=== PATIENT | female | born 1945 | race Caucasian/White ===

== ENCOUNTER → 2019-07-25 08:57 | Outpatient (CLI) | payer MEDICARE, OTHER, SELFPAY ==
--- NOTE | 2019-07-25 09:13 | DI.CT.S_ITS ---
PROCEDURE: CT ABDOMEN PELVIS WO/W CON INDICATIONS: Unspecified abd pain TECHNIQUE: Optional 5 mm thick noncontrast images acquired from the diaphragm to the symphysis pubis. After the administration of intravenous contrast, 5 mm thick images acquired from the diaphragm to the symphysis pubis after a 10-minute delay. 2 mm thick coronal and sagittal reformats were then performed of the kidneys and ureters. For radiation dose reduction, the following was used: automated exposure control, adjustment of mA and/or kV according to patient size. COMPARISON: [facility], CT, THORAX WITHOUT CONTRAST, 03/19/2014, 10:15. FINDINGS: Image quality: Excellent. Lung bases: Lung bases are clear. Right lower lobe calcified granuloma. Heart size is normal. Urinary system: Both kidneys are normal in size, without hydronephrosis or nephrolithiasis on pre-contrast images. The small left peripelvic cyst. Small bilateral cortical hypodensities which are too small to further characterize but statistically most likely benign cysts. No perinephric fat stranding. There is normal bilateral renal enhancement. Renal calyces appear normal in morphology when filled with contrast. Opacified portions of both ureters demonstrate normal caliber. No filling defect within the opacified portions of the ureter. The distal ureters are not well opacified. Bladder wall thickness is normal. No calcified bladder stones. Other solid organs: Liver is normal in size and enhancement. No focal lesion identified. Gallbladder is unremarkable. Biliary system is non dilated. Pancreas enhances normally. Spleen is normal in size and enhancement. Multiple calcified granuloma. No adrenal nodules. Peritoneum and bowel: Gastric diverticulum, unchanged. Bowel loops demonstrate normal wall thickness and caliber. Diverticulosis. The appendix is normal. No free fluid or air. Nodes and vessels: No retroperitoneal or mesenteric adenopathy by size criteria. Aorta and inferior vena cava are normal in size. Abdominal wall: No ventral hernias. Pelvis: Uterus is unremarkable. Bilateral ovarian cysts. These cysts are bilobed with a thin septation. The cyst on the right measures 4.2 x 2.9 cm, (3/144); and on the left measures 3.3 x 3.1 cm, (3/142). Coarse calcification adjacent to the right adnexa. No pathologic free pelvic fluid. No inguinal hernias or adenopathy. Bones: No suspicious bony lesions. Scoliosis. Marked degenerative disc disease most pronounced at L2-L3. No vertebral body compression fractures. Subchondral cyst in the left femoral head. IMPRESSION: 1. No acute abnormality identified. No hydronephrosis. No kidney stones. No free fluid. 2. No solid renal mass. No abnormality within the opacified portions of the ureters. Distal ureters are not well opacified. 3. Incidental bilateral ovarian cysts measuring 4.2 cm on the right and 3.3 cm on the left. -Recommend pelvic ultrasound for further characterization. Dictated by: Juliano Grove M.D. on 07/25/2019 at 10:15 Approved by: Juliano Grove M.D. on 07/25/2019 at 10:31
[2019-07-25 09:44] LABS: Alanine Aminotransferase 11 IU/L (<35); Albumin 4.3 g/dL (3.5-5.0); Albumin Globulin Ratio 1.2 (1.0-2.8); Alkaline Phosphatase 73 U/L (38-126); Aspartate Aminotransferase 23 IU/L (14-36); BUN Creatinine Ratio 13.3 (6-22); Bilirubin Total 1.5 mg/dL (0.2-1.3); Blood Urea Nitrogen 11 mg/dL (7-17); Calcium 9.8 mg/dL (8.4-10.2); Carbon Dioxide 27 mmol/L (22-32); Chloride 105 mmol/L (98-107); Estimated Glomerular Filt Rate > 60.0 mL/min (>60); Globulin 3.5 g/dL (1.7-4.1); Glucose 100 mg/dL (80-110); HEMOLYSIS < 15 (0-50); Lipase 125 U/L (23-300); Potassium 3.9 mmol/L (3.4-5.1); Sodium 139 mmol/L (137-145); Total Protein 7.8 g/dL (6.3-8.2)
[2019-07-25 09:46] LABS: Add Manual Diff / Slide Review NO; Basophils Absolute Auto 100 /uL (0-100); Basophils Percent Auto 1.1 % (0-2); Eosinophils Absolute Auto 200 /uL (0-450); Eosinophils Percent Auto 2.9 % (2-4); Hematocrit 42.9 % (36-46); Hemoglobin 14.6 g/dL (12.0-16.0); Lymphocytes Absolute Auto 1600 /uL (1100-4500); Lymphocytes Percent Auto 25.4 % (25-40); Mean Corpuscular HGB Conc 34.1 % (30-36); Mean Corpuscular Hemoglobin 29.9 PG (26-34); Mean Corpuscular Volume 87.7 fL (80-100); Monocytes Absolute Auto 500 /uL (0-900); Monocytes Percent Auto 8.5 % (3-14); Neutrophils Absolute Auto 4000 /uL (1500-7000); Neutrophils Percent Auto 62.1 % (50-75); Platelet Count 212 X10^3/uL (150-400); Red Blood Cell Count 4.89 X10^6/uL (4.0-5.2); Red Cell Distribution Width 13.5 % (11.6-14.8); White Blood Cell Count 6.5 X10^3/uL (4.5-11.0)
[2019-07-25 10:38] LABS: Erythrocyte Sedimentation Rate 6 MM/HR (0-20)
== END ==
PROVIDERS: Family Provider Family Medicine; PCP Family Medicine; Referring Provider Family Medicine; Visit Provider Family Medicine
DX: R10.9 Unspecified abdominal pain (principal); R11.2 Nausea with vomiting, unspecified; K57.90 Diverticulosis of intestine, part unspecified, without perforation or abscess without bleeding; N83.202 Unspecified ovarian cyst, left side; N83.201 Unspecified ovarian cyst, right side
CPT/HCPCS: 36415; 74178; 80053; 83690; 85025; 85651; Q9967

== ENCOUNTER → 2019-07-31 08:52 | Outpatient (CLI) | payer MEDICARE, OTHER, SELFPAY ==
--- NOTE | 2019-07-31 | DI.US.S_ITS ---
PROCEDURE: US PELVIC COMPLETE INDICATIONS: BILATERAL OVARIAN CYSTS SEEN ON CT SCAN TECHNIQUE: Real-time scanning was performed of the pelvic organs, with image documentation. Additional endovaginal scanning was necessary due to incomplete visualization of the adnexal and endometrial structures by transabdominal scanning. COMPARISON: [facility], CT, CT ABDOMEN PELVIS WO/W CON, 07/25/2019, 9:44. FINDINGS: Transabdominal scanning: Limited scanning through the kidneys shows no hydronephrosis. No pathologic free abdominal or pelvic fluid. Endovaginal scanning: Uterus: Uterus is normal in size at 5.7 x 1.9 x 3.3 cm. The endometrium measures 2 mm in combined thickness. Ovaries: Right ovary: 1.9 x 1.6 x 1.9 cm. There are 3 measured right ovarian cysts. Cyst 1 measures 3 x 3 x 3 cm. Cyst 2 measures 1.7 x 1.5 x 1.5 cm. Cyst 3 measures 0.9 x 0.9 x 0.7 cm. Left ovary: 3.0 x 2.5 x 2.3 cm. There are 3 separate measured left ovarian cysts. Cyst 1 measures 1.6 x 1.3 x 1.3 cm. Cyst 2 measures one point 1.9 x 2.3 x 1.7 cm. Cyst 3 measures 1.5 x 1.1 x 1.4 cm. IMPRESSION: 1. There are multiple bilateral ovarian cysts in a postmenopausal female. The largest individual cyst measures 3.0 cm. SRU Consensus Statement recommends yearly ultrasound followup for cysts between 1 cm and 7 cm in postmenopausal females. Therefore, followup ultrasound in 12 months is suggested. Dictated by: Edgar Leal M.D. on 07/31/2019 at 12:35 Approved by: Edgar Leal M.D. on 07/31/2019 at 12:41
== END ==
PROVIDERS: Family Provider Family Medicine; PCP Family Medicine; Referring Provider Family Medicine; Visit Provider Family Medicine
DX: N83.201 Unspecified ovarian cyst, right side (principal); N83.202 Unspecified ovarian cyst, left side
CPT/HCPCS: 76830; 76856

== ENCOUNTER → 2019-09-03 09:03 | Outpatient (CLI) | payer MEDICARE, OTHER, SELFPAY ==
[2019-09-03 11:32] LABS: Cancer Antigen 125 6.1 U/mL (0-35); Carcinoembryonic Antigen 1.7 ng/mL (0.1-3.0)
[2019-09-05 04:07] LABS: Cancer (Carbohydrate) Ag 19-9 9 U/mL (0-35)
== END ==
PROVIDERS: Family Provider Family Medicine; PCP Family Medicine; Referring Provider Obstetrics & Gynecology; Visit Provider Obstetrics & Gynecology
DX: R19.09 Other intra-abdominal and pelvic swelling, mass and lump (principal); N83.201 Unspecified ovarian cyst, right side; N83.202 Unspecified ovarian cyst, left side; R19.00 Intra-abdominal and pelvic swelling, mass and lump, unspecified site
CPT/HCPCS: 36415; 82378; 86301; 86304; 86305

== ENCOUNTER → 2019-10-21 10:03 | Outpatient (CLI) | payer MEDICARE, OTHER, SELFPAY ==
[2019-10-21 11:39] LABS: Cholesterol 281 mg/dL (140-199); HDL Cholesterol 56 mg/dL (40-60); LDL Cholesterol Calculated 170 mg/dL (<100); Triglycerides 276 mg/dL (35-150)
[2019-10-21 11:55] LABS: Vitamin D 25 Hydroxy (D3) 17.3 ng/mL (30.0-100.0)
[2019-10-21 11:58] LABS: Free T3, Triiodothyronine Free 3.16 pg/mL (2.77-5.27); Free T4, Direct Thyroxine 1.27 ng/dL (0.78-2.19)
[2019-10-21 12:12] LABS: Thyroid Stimulating Hormone 2.21 uIU/mL (0.47-4.68)
== END ==
PROVIDERS: Family Provider Family Medicine; PCP Family Medicine; Referring Provider Family Medicine; Visit Provider Family Medicine
DX: B19.20 Unspecified viral hepatitis C without hepatic coma (principal); E03.9 Hypothyroidism, unspecified; E78.5 Hyperlipidemia, unspecified; I10 Essential (primary) hypertension
CPT/HCPCS: 36415; 80061; 82306; 84439; 84443; 84481

== ENCOUNTER → 2019-10-23 09:38 | Outpatient (CLI) | payer MEDICARE, OTHER, SELFPAY ==
[2019-10-24 15:40] LABS: Fecal Immunochemical Test Negative (Negative)
== END ==
PROVIDERS: Family Provider Family Medicine; PCP Family Medicine; Referring Provider Family Medicine; Visit Provider Family Medicine
DX: Z12.11 Encounter for screening for malignant neoplasm of colon (principal)
CPT/HCPCS: 82274

== ENCOUNTER → 2020-10-04 09:13 | Outpatient (CLI) | payer MEDICARE, OTHER, SELFPAY ==
[2020-10-04 10:20] LABS: Add Manual Diff / Slide Review NO; Basophils Absolute Auto 100 /uL (0-100); Basophils Percent Auto 0.8 % (0-2); Eosinophils Absolute Auto 100 /uL (0-450); Eosinophils Percent Auto 1.9 % (2-4); Hematocrit 42.5 % (36-46); Hemoglobin 14.5 g/dL (12.0-16.0); Lymphocytes Absolute Auto 1400 /uL (1100-4500); Lymphocytes Percent Auto 22.1 % (25-40); Mean Corpuscular HGB Conc 34.1 % (30-36); Mean Corpuscular Hemoglobin 29.4 PG (26-34); Mean Corpuscular Volume 86.2 fL (80-100); Monocytes Absolute Auto 400 /uL (0-900); Monocytes Percent Auto 6.5 % (3-14); Neutrophils Absolute Auto 4400 /uL (1500-7000); Neutrophils Percent Auto 68.7 % (50-75); Platelet Count 207 X10^3/uL (150-400); Red Blood Cell Count 4.94 X10^6/uL (4.0-5.2); Red Cell Distribution Width 14.1 % (11.6-14.8); White Blood Cell Count 6.4 X10^3/uL (4.5-11.0)
[2020-10-04 10:29] LABS: Alanine Aminotransferase 22 IU/L (<35); Albumin 4.2 g/dL (3.5-5.0); Albumin Globulin Ratio 1.2 (1.0-2.8); Alkaline Phosphatase 87 U/L (38-126); Aspartate Aminotransferase 32 IU/L (14-36); BUN Creatinine Ratio 17.1 (6-22); Bilirubin Total 1.1 mg/dL (0.2-1.3); Blood Urea Nitrogen 12 mg/dL (7-17); Calcium 9.8 mg/dL (8.4-10.2); Carbon Dioxide 26 mmol/L (22-32); Chloride 105 mmol/L (98-107); Cholesterol 310 mg/dL (140-199); Estimated Glomerular Filt Rate > 60.0 mL/min (>60); Globulin 3.5 g/dL (1.7-4.1); Glucose 97 mg/dL (80-110); HDL Cholesterol 68 mg/dL (40-60); HEMOLYSIS < 15 (0-50); LDL Cholesterol Calculated 212 mg/dL (<100); Potassium 3.6 mmol/L (3.4-5.1); Sodium 139 mmol/L (137-145); Total Protein 7.7 g/dL (6.3-8.2); Triglycerides 148 mg/dL (35-150)
[2020-10-04 10:39] LABS: HEMOLYSIS < 15 (0-50); Iron 94 ug/dL (37-170)
[2020-10-04 10:51] LABS: Percent Iron Saturation 28 % (15-50); Total Iron Binding Capacity 335 ug/dL (265-497); Transferrin 266 mg/dL (206-381)
[2020-10-04 10:56] LABS: Free T3, Triiodothyronine Free 4.02 pg/mL (2.77-5.27); Free T4, Direct Thyroxine 0.98 ng/dL (0.78-2.19)
[2020-10-04 11:01] LABS: Vitamin D 25 Hydroxy (D3) 17.2 ng/mL (30.0-100.0)
[2020-10-04 11:10] LABS: Thyroid Stimulating Hormone 7.36 uIU/mL (0.47-4.68)
[2020-10-04 11:16] LABS: Vitamin B12 307 pg/mL (239-931)
[2020-10-04 15:44] LABS: Hep C Virus Ab w/Reflex Quant REACTIVE s/c (NEGATIVE)
== END ==
PROVIDERS: Family Provider Family Medicine; PCP Family Medicine; Referring Provider Family Medicine; Visit Provider Family Medicine
DX: E03.9 Hypothyroidism, unspecified (principal); Z86.19 Personal history of other infectious and parasitic diseases; E78.5 Hyperlipidemia, unspecified; I15.2 Hypertension secondary to endocrine disorders; R53.83 Other fatigue
CPT/HCPCS: 36415; 80053; 80061; 82306; 82607; 83540; 83550; 84439; 84443; 84481; 85025; 86803; 87522

== ENCOUNTER → 2021-05-30 08:30 | Outpatient (CLI) | payer MEDICARE, OTHER, SELFPAY ==
[2021-05-30 19:31] LABS: Add Manual Diff / Slide Review NO; Basophils Absolute Auto 100 /uL (0-100); Basophils Percent Auto 1.4 % (0-2); Eosinophils Absolute Auto 200 /uL (0-450); Eosinophils Percent Auto 2.8 % (2-4); Hematocrit 39.6 % (36-46); Hemoglobin 13.3 g/dL (12.0-16.0); Lymphocytes Absolute Auto 1700 /uL (1100-4500); Lymphocytes Percent Auto 27.6 % (25-40); Mean Corpuscular HGB Conc 33.5 % (30-36); Mean Corpuscular Hemoglobin 28.6 PG (26-34); Mean Corpuscular Volume 85.2 fL (80-100); Monocytes Absolute Auto 500 /uL (0-900); Monocytes Percent Auto 7.2 % (3-14); Neutrophils Absolute Auto 3900 /uL (1500-7000); Platelet Count 219 X10^3/uL (150-400); Red Blood Cell Count 4.65 X10^6/uL (4.0-5.2); Red Cell Distribution Width 13.4 % (11.6-14.8); White Blood Cell Count 6.3 X10^3/uL (4.5-11.0)
[2021-05-30 19:34] LABS: Alanine Aminotransferase 16 IU/L (<35); Albumin 4.1 g/dL (3.5-5.0); Albumin Globulin Ratio 1.3 (1.0-2.8); Alkaline Phosphatase 70 U/L (38-126); Aspartate Aminotransferase 28 IU/L (14-36); Bilirubin Total 0.9 mg/dL (0.2-1.3); Blood Urea Nitrogen 12 mg/dL (7-17); Calcium 9.8 mg/dL (8.4-10.2); Carbon Dioxide 29 mmol/L (22-32); Chloride 105 mmol/L (98-107); Cholesterol 276 mg/dL (140-199); Estimated Glomerular Filt Rate > 60.0 mL/min (>60); Globulin 3.2 g/dL (1.7-4.1); Glucose 88 mg/dL (80-110); HDL Cholesterol 76 mg/dL (40-60); HEMOLYSIS < 15 (0-50); LDL Cholesterol Calculated 176 mg/dL (<100); Sodium 138 mmol/L (137-145); Total Protein 7.3 g/dL (6.3-8.2); Triglycerides 118 mg/dL (35-150)
[2021-05-30 19:51] LABS: Vitamin D 25 Hydroxy (D3) 13.4 ng/mL (30.0-100.0)
[2021-05-30 19:53] LABS: Free T4, Direct Thyroxine 1.06 ng/dL (0.78-2.19)
[2021-05-30 20:07] LABS: TSH w/ Reflex to FT4 5.21 uIU/mL (0.47-4.68)
[2021-05-30 20:23] LABS: Vitamin B12 297 pg/mL (239-931)
== END ==
PROVIDERS: Family Provider Family Medicine; PCP Physician Assistant; Visit Provider Physician Assistant
DX: E78.5 Hyperlipidemia, unspecified (principal); N94.10 Unspecified dyspareunia; K85.00 Idiopathic acute pancreatitis without necrosis or infection; B18.2 Chronic viral hepatitis C; I10 Essential (primary) hypertension; L65.9 Nonscarring hair loss, unspecified; M85.80 Other specified disorders of bone density and structure, unspecified site; R53.83 Other fatigue
CPT/HCPCS: 80053; 80061; 82306; 82607; 84439; 84443; 85025

== ENCOUNTER → 2023-01-09 13:17 | Outpatient (CLI) | payer MEDICARE, OTHER, SELFPAY ==
[2023-01-09 19:16] LABS: Add Manual Diff / Slide Review NO; Basophils Absolute Auto 100 /uL (0-100); Basophils Percent Auto 1.5 % (0-2); Eosinophils Absolute Auto 100 /uL (0-450); Eosinophils Percent Auto 1.2 % (2-4); Hematocrit 39.7 % (36-46); Hemoglobin 13.5 g/dL (12.0-16.0); Lymphocytes Absolute Auto 1600 /uL (1100-4500); Lymphocytes Percent Auto 22.2 % (25-40); Mean Corpuscular Hemoglobin 28.7 PG (26-34); Mean Corpuscular Volume 84.4 fL (80-100); Monocytes Absolute Auto 500 /uL (0-900); Monocytes Percent Auto 7.5 % (3-14); Neutrophils Absolute Auto 4900 /uL (1500-7000); Neutrophils Percent Auto 67.6 % (50-75); Platelet Count 215 X10^3/uL (150-400); Red Cell Distribution Width 13.6 % (11.6-14.8); White Blood Cell Count 7.2 X10^3/uL (4.5-11.0)
[2023-01-09 19:24] LABS: Alanine Aminotransferase 17 IU/L (<35); Albumin 4.2 g/dL (3.5-5.0); Albumin Globulin Ratio 1.4 (1.0-2.8); Alkaline Phosphatase 86 U/L (38-126); Aspartate Aminotransferase 26 IU/L (14-36); BUN Creatinine Ratio 15.9 (6-22); Bilirubin Total 0.8 mg/dL (0.2-1.3); Blood Urea Nitrogen 13 mg/dL (7-17); Calcium 9.9 mg/dL (8.4-10.2); Carbon Dioxide 27 mmol/L (22-32); Chloride 101 mmol/L (98-107); Estimated Glomerular Filt Rate > 60 mL/min (>60); Globulin 3.1 g/dL (1.7-4.1); Glucose 88 mg/dL (80-110); HEMOLYSIS < 15 (0-50); Potassium 3.8 mmol/L (3.4-5.1); Sodium 135 mmol/L (137-145); Total Protein 7.3 g/dL (6.3-8.2)
[2023-01-09 19:39] LABS: Vitamin D 25 Hydroxy (D3) 35.8 ng/mL (30.0-100.0)
[2023-01-09 19:40] LABS: Thyroid Stimulating Hormone 5.56 uIU/mL (0.47-4.68)
[2023-01-11 07:35] LABS: Hepatitis B Core Antibody Negative (Negative)
[2023-01-11 16:19] LABS: Hep C Virus Ab w/Reflex Quant REACTIVE s/c (NEGATIVE); Hepatitis B Surface Antigen NEGATIVE s/c (NEGATIVE)
[2023-01-12 04:11] LABS: Hepatitis B Surf Ab Qualitativ Non Reactive (.)
== END ==
PROVIDERS: Family Provider Family Medicine; PCP Family Medicine; Visit Provider Family Medicine
DX: Z79.899 Other long term (current) drug therapy (principal); B19.20 Unspecified viral hepatitis C without hepatic coma; E03.8 Other specified hypothyroidism; E78.5 Hyperlipidemia, unspecified; F12.90 Cannabis use, unspecified, uncomplicated; I10 Essential (primary) hypertension; E55.9 Vitamin D deficiency, unspecified
CPT/HCPCS: 80053; 82306; 84443; 85025; 86704; 86706; 86803; 87340; 87522

== ENCOUNTER → 2023-01-24 08:55 | Outpatient (CLI) | payer MEDICARE, OTHER, SELFPAY ==
--- NOTE | 2023-01-24 08:57 | DI.US.S_ITS ---
PROCEDURE: US ABDOMEN LIMITED INDICATIONS: HISTORY HEP C TECHNIQUE: Real-time focused scanning was performed of the abdomen, with image documentation. COMPARISON: [facility], CT, CT ABDOMEN PELVIS WO/W CON, 07/25/2019, 9:44. [facility], US, ABDOMEN COMPLETE, 06/07/2010, 10:19. [facility], US, ABDOMEN COMPLETE, 09/26/2012, 12:50. FINDINGS: The liver is normal in size and demonstrates no suspicious lesions. No findings of gallstones or sludge are seen. The gallbladder wall is not thickened, measuring 3 mm or less. No specific pericholecystic fluid is seen. The sonographic Mohamud sign is negative. There is no biliary dilatation, the common bile duct measures 3 mm. No significant pancreatic abnormality is seen on these images. IMPRESSION: Normal appearing liver by ultrasound. Dictated by: Rogelio Antoine M.D. on 01/24/2023 at 12:08 Approved by: Rogelio Antoine M.D. on 01/24/2023 at 12:10
== END ==
PROVIDERS: Family Provider Family Medicine; PCP Family Medicine; Referring Provider Family Medicine; Visit Provider Family Medicine
DX: B19.20 Unspecified viral hepatitis C without hepatic coma (principal); I10 Essential (primary) hypertension; E03.8 Other specified hypothyroidism; E78.5 Hyperlipidemia, unspecified; F12.90 Cannabis use, unspecified, uncomplicated
CPT/HCPCS: 76705

== ENCOUNTER → 2024-04-23 09:37 | Outpatient (CLI) | payer MEDICARE, OTHER, SELFPAY ==
[2024-04-23 19:49] LABS: Add Manual Diff / Slide Review NO; Basophils Absolute Auto 0 /uL (0-100); Basophils Percent Auto 0.9 % (0-2); Eosinophils Absolute Auto 200 /uL (0-450); Eosinophils Percent Auto 3.5 % (2-4); Hemoglobin 14.2 g/dL (12.0-16.0); Lymphocytes Absolute Auto 1300 /uL (1100-4500); Lymphocytes Percent Auto 26.1 % (25-40); Mean Corpuscular HGB Conc 33.8 % (30-36); Mean Corpuscular Hemoglobin 29.1 PG (26-34); Mean Corpuscular Volume 86.1 fL (80-100); Monocytes Absolute Auto 400 /uL (0-900); Monocytes Percent Auto 8.5 % (3-14); Neutrophils Absolute Auto 3000 /uL (1500-7000); Platelet Count 245 X10^3/uL (150-400); Red Blood Cell Count 4.88 X10^6/uL (4.0-5.2); Red Cell Distribution Width 13.8 % (11.6-14.8)
[2024-04-23 19:59] LABS: Alanine Aminotransferase 16 IU/L (<35); Albumin 3.9 g/dL (3.5-5.0); Albumin Globulin Ratio 1.3 (1.0-2.8); Alkaline Phosphatase 65 U/L (38-126); Aspartate Aminotransferase 30 IU/L (14-36); BUN Creatinine Ratio 14.3 (6-22); Bilirubin Total 1.5 mg/dL (0.2-1.3); Blood Urea Nitrogen 13 mg/dL (7-17); Carbon Dioxide 30 mmol/L (22-32); Chloride 104 mmol/L (98-107); Estimated Glomerular Filt Rate > 60 mL/min (>60); Globulin 3.1 g/dL (1.7-4.1); Glucose 88 mg/dL (80-110); HDL Cholesterol 72 mg/dL (40-60); HEMOLYSIS < 15 (0-50); Potassium 4.5 mmol/L (3.4-5.1); Sodium 134 mmol/L (137-145); Triglycerides 125 mg/dL (35-150)
[2024-04-23 20:07] LABS: Cholesterol 321 mg/dL (140-199); LDL Cholesterol Calculated 224 mg/dL (<100)
[2024-04-23 20:16] LABS: Vitamin D 25 Hydroxy (D3) 16.2 ng/mL (30.0-100.0)
[2024-04-23 20:30] LABS: Thyroid Stimulating Hormone 1.89 uIU/mL (0.47-4.68)
== END ==
PROVIDERS: Family Provider Family Medicine; PCP Family Medicine; Visit Provider Family Medicine
DX: E03.9 Hypothyroidism, unspecified (principal); M85.80 Other specified disorders of bone density and structure, unspecified site; E03.8 Other specified hypothyroidism; E55.9 Vitamin D deficiency, unspecified; I10 Essential (primary) hypertension
CPT/HCPCS: 80053; 80061; 82306; 84443; 85025

== ENCOUNTER → 2025-02-17 09:35 | Outpatient (CLI) | payer MEDICARE, OTHER, SELFPAY ==
[2025-02-17 19:33] LABS: Alanine Aminotransferase 13 IU/L (<35); Albumin 4.3 g/dL (3.5-5.0); Albumin Globulin Ratio 1.4 (1.0-2.8); Alkaline Phosphatase 74 U/L (38-126); Blood Urea Nitrogen 10 mg/dL (7-17); Calcium 9.9 mg/dL (8.4-10.2); Carbon Dioxide 27 mmol/L (22-32); Chloride 102 mmol/L (98-107); Cholesterol 218 mg/dL (140-199); Estimated Glomerular Filt Rate > 60 mL/min (>60); Globulin 3.1 g/dL (1.7-4.1); Glucose 92 mg/dL (70-99); HDL Cholesterol 87 mg/dL (40-60); HEMOLYSIS 25 (0-50); Potassium 4.3 mmol/L (3.4-5.1); Sodium 136 mmol/L (137-145); Total Protein 7.4 g/dL (6.3-8.2); Triglycerides 76 mg/dL (35-150)
[2025-02-17 19:46] LABS: Vitamin D 25 Hydroxy (D3) 16.5 ng/mL (30.0-100.0)
== END ==
PROVIDERS: Family Provider Family Medicine; PCP Family Medicine; Visit Provider Family Medicine
DX: E55.9 Vitamin D deficiency, unspecified (principal); E78.2 Mixed hyperlipidemia
CPT/HCPCS: 80053; 80061; 82306